=== PATIENT | male | born 1980 | race Caucasian/White ===

== ENCOUNTER 2023-12-02 08:12 | Emergency (ER) | payer BC ==
[~2023-12-02] VITALS: Ht 177.8 cm; Wt 95.5 kg
[2023-12-02 08:54] LABS: BASO # 0.1 K/mm3 (0.0-0.2); BASO % 1.3 % (0.0-2.0); EOS # 0.4 K/mm3 (0.0-0.7); EOS % 6.3 % (0.0-4.0); GRAN # 3.2 K/mm3 (1.4-6.5); HEMATOCRIT 47.1 % (42.0-52.0); HEMOGLOBIN 15.6 g/dl (13.5-18.0); LYMPH # 2.1 K/mm3 (1.2-3.4); MEAN CELL VOLUME 84 fl (80.0-100.0); MEAN CORPUSCULAR HEMOGLOBIN 28 pg (27-31); MEAN CORPUSCULAR HGB CONC 33 g/dl (33.0-37.0); MEAN PLATELET VOLUME 10.3 fl (7.4-10.4); MONO # 0.4 K/mm3 (0.1-0.6); MONO % 6.2 % (1.7-9.3); PLATELET COUNT 238 K/mm3 (130-400); RED BLOOD COUNT 5.58 M/mm3 (4.20-5.60)
[2023-12-02 09:25] LABS: TROPONIN-I < 0.010 ng/mL (0.00-0.033)
[2023-12-02 10:42] LABS: MAGNESIUM 1.7 mg/dL (1.6-2.6)
[2023-12-02 10:51] LABS: ALANINE AMINOTRANSFERASE 47 U/L (0-55); ALBUMIN 4.2 g/dL (3.5-5.0); ALKALINE PHOSPHATASE 52 U/L (40-150); ANION GAP 12 mmol/L (7-16); AST,SGOT 28 U/L (5-34); BILIRUBIN,TOTAL 0.7 mg/dL (0.2-1.2); BLOOD UREA NITROGEN 13 mg/dL (9-21); CALCIUM 9.4 mg/dL (8.4-10.2); CHLORIDE 107 mEq/L (98-107); CREATININE, serum 1.09 mg/dL (0.72-1.25); GLUCOSE 94 mg/dL (70-99); POTASSIUM 3.6 mEq/L (3.5-4.5); SODIUM 139 mEq/L (136-145); TOTAL PROTEIN 7.3 g/dl (6.2-8.1)
[2023-12-02 11:22] VITALS: BP 150/103; PULSE 70
== END 2023-12-02 11:32 | disposition home or self-care (01) ==
LOC: COL.ER 08:12
PROVIDERS: Emergency Medicine
DX: R03.0 Elevated blood-pressure reading, without diagnosis of hypertension (principal); R00.2 Palpitations; Z79.899 Other long term (current) drug therapy

== ENCOUNTER 2024-06-02 20:21 | Emergency (ER) | payer BC ==
[~2024-06-02] VITALS: Ht 177.8 cm; Wt 100.0 kg
[2024-06-02] MEDS ORDERED: Glucagon 1 MG VIAL IV ONE (21:00)
[2024-06-02 22:09] VITALS: BP 151/92; PULSE 83; TEMP 97.8
[2024-06-07] MEDS ORDERED: HYZAAR 50-12.1 UDTAB PO (12:35)
== END 2024-06-02 22:09 | disposition home or self-care (01) ==
LOC: COL.ER 20:21
DX: T18.128A Food in esophagus causing other injury, initial encounter (principal); W44.F3XA Food entering into or through a natural orifice, initial encounter
CPT/HCPCS: J1610